=== PATIENT | female | born 1970 | race Caucasian/White ===

== ENCOUNTER → 2018-03-14 | Outpatient (CLI) | payer BC ==
[2018-03-14 12:56] LABS: ANION GAP 6 MEQ/L (8-16); BLOOD UREA NITROGEN 17 MG/DL (7-18); CALCIUM LEVEL 9.3 MG/DL (8.5-10.1); CARBON DIOXIDE LEVEL 32 MEQ/L (21-32); CHLORIDE LEVEL 102 MEQ/L (98-107); CREATININE FOR GFR 1.35 MG/DL (0.55-1.30); GLOMERULAR FILTRATION RATE 44.6 (>58); GLUCOSE, FASTING 85 MG/DL (70-100); SODIUM LEVEL 140 MEQ/L (136-145)
== END ==
LOC: M LAB 11:51
DX: Z01.810 Encounter for preprocedural cardiovascular examination (principal); R94.31 Abnormal electrocardiogram [ECG] [EKG]
CPT/HCPCS: 93005

== ENCOUNTER 2018-08-27 15:08 | Outpatient (RCR) | payer BC ==
[~2018-08-27 15:08] MED LIST: CITA10SO PO; FERR325T3 PO; GABA-843 PO; HYDR12.55 PO; LEVO150T7 PO; LEVOTHYROXINE; NORG1TAB PO; OMEP40CA2 PO; RANI150T PO; RANI1TAB6 PO; ROPI1TAB PO; ZOLP10TA2 PO
== END 2018-09-21 ==
LOC: M PT 15:08
PROVIDERS: ATTEND Orthopaedic Surgery
DX: M17.11 Unilateral primary osteoarthritis, right knee (principal)

== ENCOUNTER 2018-10-08 06:51 | Inpatient (IN) | payer BC ==
--- NOTE | 2018-09-20 16:24 | HPE ---
DATE OF SCHEDULED ADMISSION: 10/08/2018 HISTORY OF PRESENT ILLNESS: This is a pleasant 48-year-old female with continuing symptomatic right knee osteoarthritis. She consented for a right total knee arthroplasty per Dr. Vel Price. States she was medically cleared per Dr. Gloria Dixon. I am still awaiting clearance note. X-rays are consistent with advanced osteoarthritis. ALLERGIES: None known to drugs. CURRENT MEDICATION LIST: Includes; - levothyroxine sodium 150 mcg - ropinirole HCl 2 mg - citalopram hydrobromide 20 mg - hydrochlorothiazide 12.5 mg - omeprazole 40 mg - gabapentin 300 mg - ferrous sulfate 325 (65 ferrous) mg - zolpidem tartrate 10 mg - voltaren 1% - fenofibrate 145 mg - zolpidem tartrate ER 12.5 mg MEDICAL PROBLEM LIST: Symptomatic right knee osteoarthritis. Hypercholesterolemia. Gastroesophageal reflux disease. Restless legs. Kidney stone. Anxiety. Thyroid disease. Depression. SURGICAL HISTORY: Positive for section times two. Tubal ligation. Removal of gallbladder. Appendectomy. Thyroidectomy. George fundoplication. Laparoscopy times two. Knee arthroscopic surgery. FAMILY HISTORY: Positive for diabetes, hypertension, hypercholesteremia, heart disease, arthritis, thyroid disease. Cancer. SOCIAL HISTORY: The patient never smoked. Denies ethanol intake. REVIEW OF SYSTEMS: Denies chest pain, shortness of breath, dyspnea on exertion, fever, chills, malaise, upper respiratory and/or urinary tract symptoms. LABORATORY: Labs were completed through [facility] 08/23/2018. GFR 47.8, otherwise unremarkable. Chest x-ray, [facility], date of exam 08/23/2018: No acute cardiopulmonary process. EKG result: Sinus rhythm, improved nonspecific ST-T ABN as read by Dr. Shepherd via [facility] 09/12/2018. VITAL SIGNS: Height 62.75, weight 206.8, temperature 98.7, blood pressure 135/80, pulse 65 inches, respirations 18. This is a pleasant, well-developed, well-nourished, obese female in no acute distress. Alert and oriented times three. Mood and affect are appropriate. She is ambulating without overt antalgia assistance favoring. Normocephalic. Neck: Supple. Negative jugular venous distention (JVD) or bruits. Chest: Rises symmetrically. Regular rate and rhythm. Lungs: Clear to auscultation. Bowel sounds times four, soft, nontender. Bilateral lower extremity: Skin intact, benign, noninfectious looking. Right knee: Range of motion with crepitance through flexion and extension. Positive medial joint line tenderness. Noted old healed portal scar sites. No evidence of deep vein thrombosis (DVT) or compartment syndrome. IMPRESSION: 1. Right knee symptomatic degenerative joint disease (DJD). 2. Patient consented for a right total knee arthroplasty per Dr. Vel Price. 3. Medical optimization per Dr. Gloria Dixon, per patient, I am still awaiting the clearance note. 4. 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 5. Sequential compression device (SCD) and thromboembolism deterrents (TEDs) in OR.
--- NOTE | 2018-10-04 19:59 | CR ---
DATE OF CONSULTATION: 10/04/2018 CONSULTATION FOR: Dr. Manuel Price for right total knee arthroplasty (TKA) scheduled 10/08/2018 at [facility]. Dear Dr. Price: Thank you for asking me to see Ms. Rut Mancuso in consultation prior to her right TKA. Ms. Mancuso reports that she has been severely limited by pain and disability from progressive pain from her right knee. 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 It is all she can do to work just her job. She goes home exhausted and can hardly recover before her next day of work. The patient has longstanding history of depression, anxiety. She is maintained on citalopram. She reports with her pain and exhaustion, her depression is bad. The patient had been maintained on Ambien ER 12.5. She reports that although it did not work, she was hesitant to let me change it back in August. The high dose she was on is not approved by the Food and Drug Administration for women. She was weaned off this and replaced with trazodone. She reports that she has difficulty falling asleep and getting through the night. She is taking 50 mg of trazodone 1 hour before bedtime. The patient has had an George fundoplication for a hiatal hernia. She is on omeprazole twice a day with good control of dyspepsia. Reports if she misses a pill, she has quite severe dyspepsia. The patient reports that she had had regular menses until last month. Her menses have always been heavy, with heavy flow 4-5 days. The patient reports history of diarrhea tendencies, which resolved when she was placed on iron several years ago. The patient reports recent right breast lump; she has a consultation for a biopsy with Dr. Miller October 31. The patient has a history of migraines. They are well controlled on gabapentin. The patient has a history of edema, uses hydrochlorothiazide for this. She has not used it recently. The patient admits she is quite inactive, but she denies any fevers or chills, chest pain or shortness of breath. The patient reports she has left foot plantar fasciitis. PAST MEDICAL HISTORY: 1. Left carpal tunnel release 03/28/2018, Dr. Lott. 2. Chronic kidney disease. 3. Thyroid cancer 2008. 4. Status post thyroidectomy in 2008. 5. Renal calculi. 6. George fundoplication times two 2011. 7. Cervical cancer in her 20s, status post loop electrosurgical excision procedure (LEEP) procedure, monitored by Dr. Paulino in [place]. 8. Status post appendectomy 1999. 9. Status post cholecystectomy 2000. 10. Status post right TKA 2016. 11. Restless leg syndrome. 12. Migraines. 13. Depression. 14. Insomnia. 15. Left foot plantar fasciitis. 16. Iron deficiency anemia, status post esophagogastroduodenoscopy (EGD) 11/06/2015 and colonoscopy 05/28/2013 without significant pathology. 17. Hypothyroid. MEDICATIONS: - citalopram 20 mg daily - fenofibrate 145 mg daily - ferrous sulfate 325 mg two daily - gabapentin 300 mg three times a day - levothyroxine 150 mcg daily - omeprazole 40 mg two times a day - ropinirole 2 mg at bedtime - trazodone 50 mg nightly DRUG ALLERGIES: None. SOCIAL HISTORY: , two adult children. Works at [employer] in the [employer]. Never smoked. No alcohol. FAMILY HISTORY: Father has coronary artery disease, status post bypass 2013 and history of myocardial infarction times four, history of diabetes. Mother osteoporosis, advanced diabetes, bleeding ulcers. Grandparents cancer in maternal grandfather, throat cancer in a paternal grandmother. Maternal grandmother committed suicide. PHYSICAL EXAMINATION: Obese female, in no acute distress. Her weight is 212 with a body mass index (BMI) of 39, blood pressure 114/74 with a heart rate of 88. Her oxygen saturation (O2) is 97%. Cardiovascular: Soft systolic murmur, does not radiate to the carotids. Abdomen: Obese. Breast Exam: Deferred. HEENT: She wears eyeglasses. IMAGING AND LABORATORY DATA: Chest x-ray, 09/11/2018: No acute disease. EKG, 09/11/2018: Normal sinus rhythm, improved nonspecific ST-T wave changes, rate is 71, normal AL, QRS, QTc interval, normal R-wave progression. No atrial or ventricular hypertrophy. Essentially normal EKG. Laboratory data - 09/11/2018: The patient has a normal CBC, ESR of 16, normal PT/PTT. Med profile significant for a GFR of 48, normal liver panel. IMPRESSION: Ms. Rut Mancuso, a 48-year-old female, cardiovascular risk factors positive for hyperlipidemia, obesity, age, family history, has no signs or symptoms indicative of cardiovascular ischemia and is felt to be at low risk for cardiovascular complications from the proposed surgical intervention, which can be further minimized by the following: PROBLEMS: 1. Hyperlipidemia: Hold fenofibrate morning of surgery. 2. Hiatal hernia, gastroesophageal reflux disease, status post George fundoplication: Take omeprazole with a sip of water morning of surgery. 3. Hypothyroid: Take levothyroxine sip of water morning of surgery. 4. Migraines: She will hold her gabapentin morning of surgery. 5. Restless legs syndrome. She will take ropinirole as usual the evening prior to surgery. 6. Iron deficiency anemia (SUSU): Normal EGD, colonoscopy. Expect related to menorrhagia. Her hemoglobin is normal. She will hold her ferrous sulfate morning of surgery. 7. Insomnia: I have approved her increasing her trazodone from 50 mg to 100 mg as needed. She will start with 75 mg for 2-3 days. 8. Depression: She will take her citalopram as usual the evening prior to surgery. Her PHQ-9 is reviewed and is elevated because of daily fatigue, insomnia and poor eating habits. The patient feels all these symptoms are related to her exhaustion from her pain and difficulties with work. 9. Right breast lump: She will have a consultation with Dr. Miller October 31. 10. Soft systolic murmur: Hold off on further evaluation/treatment. No significant radiation, barely audible. Thank you very much for this consultation. Please call with questions or concerns.
[2018-10-08] VITALS (22 sets, daily range): BP systolic 115–138; BP diastolic 68–89
[~2018-10-08] VITALS: Ht 157.5 cm; Wt 93.9 kg
[~2018-10-08 06:51] MED LIST changes: +LIDOCAINE 1% MDV 20ML VIAL SQ PRN; +LR 1,000 ML IV ONE
[2018-10-08] MEDS ORDERED: TRANEXAMIC ACID 100 MG/ML 10ML VIAL As Ordered ONE (07:11)
[2018-10-08] MEDS ORDERED: ceFAZolin 1GM INJ (J0690 PER 500MG) As Ordered ONE (07:12)
[2018-10-08] MEDS ORDERED: EPINEPHrine INJ 1 MG/ML 1ML AMP As Ordered ONE (07:12)
[2018-10-08] MEDS ORDERED: BUPIVACAINE LIPOSOME/PF 1.3% 20ML VIAL (13.3MG/ML)(EXPAREL)(C9290 PER1MG) As Ordered ONE (07:13)
[2018-10-08] MEDS ORDERED: fentaNYL 100 MCG/2 ML INJECTION (J3010) As Ordered ONE ×2 (08:35→10:05)
[2018-10-08] MEDS ORDERED: MIDAZOLAM INJ 2 MG/2 ML VIAL (J2250) As Ordered ONE ×2 (08:35→10:05)
--- NOTE | 2018-10-08 08:53 | IPN ---
DATE OF SERVICE: 10/08/2018 Patient seen and examined. She wished to go ahead with a right total knee arthroplasty. She understands the nature of this, the risks of bleeding, infection, damage to nerves, vessels, persistent pain, wear, loosening, blood clots, medical problems, , among others. Preop clearance was obtained. She wished to proceed with a right knee arthroplasty.
[2018-10-08] MEDS ORDERED: fentaNYL 100 MCG/2 ML INJECTION (J3010) IV ONE (09:30)
[2018-10-08] MEDS ORDERED: MIDAZOLAM INJ 2 MG/2 ML VIAL (J2250) IV ONE (09:30)
[2018-10-08] MEDS ORDERED: LIDOCAINE 1% MDV 20ML VIAL ONE (09:40)
[2018-10-08] MEDS ORDERED: ROPIvacaine 0.5% 30 ML INJECTION (J2795 PER 1MG) ONE (09:40)
[2018-10-08] MEDS ORDERED: dexameTHASONE 10 MG/1 ML VIAL PRES.FREE (J1100) ONE (09:40)
[2018-10-08] MEDS ORDERED: PROPOFOL 200 MG/20 ML VIAL As Ordered ONE (10:05)
[2018-10-08] MEDS ORDERED: LIDOCAINE 2% INJ 100 MG/5 ML SDV (FOR ANES.) As Ordered ONE (10:05)
[2018-10-08] MEDS ORDERED: ONDANSETRON 4MG/2ML VIAL (J2405) As Ordered ONE (10:05)
[2018-10-08] MEDS ORDERED: ePHEDrine SULFATE 25 MG/5 ML(5MG/ML) SYRINGE As Ordered ONE (10:08)
[2018-10-08] MEDS ORDERED: fentaNYL 100 MCG/2 ML INJECTION (J3010) IV PRN (11:30)
[2018-10-08] MEDS ORDERED: LR 1,000 ML IV SCH (11:30)
[2018-10-08] MEDS ORDERED: ONDANSETRON 4MG/2ML VIAL (J2405) IV PRN ×2 (11:30→11:45)
[2018-10-08] MEDS ORDERED: ACETAMINOPHEN TAB 650MG DOSE (2X325MG) PO PRN (11:45)
[2018-10-08] MEDS ORDERED: PERCOCET 5MG/325MG TAB PO PRN (11:45)
[2018-10-08] MEDS ORDERED: MORPHINE 4 MG/ML 1ML VIAL/SYRINGE (J2270) IV PRN (11:45)
[2018-10-08] MEDS ORDERED: FLEET ENEMA PR PRN (11:45)
[2018-10-08] MEDS: LR 1,000 ML IV SCH (11:45)
--- NOTE | 2018-10-08 11:46 | REP ---
RIGHT KNEE, TWO VIEWS: Two views of the right knee are performed following placement of a total knee arthroplasty. Prosthetic components are in good position. The structures are well aligned. Metallic skin veronique are seen anteriorly. Electronically Signed by Avery Aguayo MD 10/08/2018 04:20 P
[2018-10-08] MEDS: PERCOCET 5MG/325MG TAB PO PRN ×3 (12:20→19:48)
--- NOTE | 2018-10-08 13:46 | CR.PDOC ---
General Date of Consultation: Oct 08, 2018 Consultation DATE OF CONSULT: 10/08/2018 CONSULT FOR: Orthopedic surgery REASON FOR CONSULT: Medical management HISTORY OF PRESENT ILLNESS: Patient is a 48-year-old female with known right knee significant osteoarthritis was failed supportive measures in the outpatient setting. At this time she is postop day 0 status post elective right total knee arthroplasty. I have been told that she tolerated her procedure quite well she did have significant pain prior to the procedure at this time her pain is controlled. We'll pick surgery as consult medicine order to assist with medical management while hospitalized and her chronic medical problems. Otherwise patient denies weight loss, hair loss, headache, visual changes, chest pain, shortness of breath, cough, nausea, vomiting, diarrhea, abdominal pain, muscle aches, worsening arthritis, change in mood. Preop risk stratification completed by Dr. Hernandez the patient's primary care provider PAST MEDICAL HISTORY: 1. Depression and anxiety. 2. Insomnia. 3. Chronic kidney disease 4. Thyroid cancer status post thyroidectomy 5. Cervical cancer status post LEEP 6. Restless leg syndrome 7. Iron deficiency anemia 8. Hypothyroidism 9. Dyslipidemia. HOME MEDICATIONS: Please see below. ALLERGIES: Please see below PAST SURGICAL HISTORY: 1. Appendectomy. 2. Cholecystectomy. 3. And George fundoplication 4. Breast biopsy 5. Left carpal tunnel release 6. Thyroidectomy 7. LEEP. SOCIAL HISTORY: Lives with: With her , Employment: [employer], Tobacco use: Denies. ETOH: Denies, Illicit drug use: Denies, Tattoos done unprofessionally: Denies. CODE STATUS: Full code FAMILY HISTORY:Reviewed and noncontributory REVIEW OF SYSTEMS: 10 systems reviewed and negative other than HPI PHYSICAL EXAMINATION: VITAL SIGNS: Temperature 97.3, pulse 66, respiratory rate 14, blood pressure 126/81, pulse oximetry 92 % on 2 L GENERAL: Pleasant female sitting up in bed awake alert oriented speaking in complete sentences no acute distress HEENT: Moist mucous membranes no elevation and CVP CARDIOVASCULAR: S1 S2 regular no additional heart sounds appreciated. RESPIRATORY: Clear to auscultation bilaterally. ABDOMINAL: Bowel sounds present abdomen soft and nontender, obese EXTREMITIES: No clubbing cyanosis or edema, her right lower extremity is Danilo wrapped the dressing is clean dry and intact NEUROLOGICAL: Spontaneously moves all 4 extremities cranial 2 through 12 grossly intact no gross focal deficits appreciated decreased range of motion on the right lower exam is secondary to pain PSYCHOLOGICAL: Appropriate LABORATORY DATA: See below. MICROBIOLOGY: Please see below. IMAGING: Knee x-ray 10/08/2018Two views of the right knee are performed following placement of a total knee arthroplasty. Prosthetic components are in good position. The structures are well aligned. Metallic skin veronique are seen anteriorly. ASSESSMENT & PLAN: This is a 48-year-old female postop day 0 for right total knee arthroplasty PROBLEMS: 1. Right total knee arthroplasty point. Day 0: Management as per orthopedic surgery, pain control DVT prophylaxis physical therapy occupational therapy disposition.. 2.Iron deficiency anemia: Continue with ferrous sulfate, she'll likely have a very mild drop in hemoglobin secondary to surgery, 3.Dyspepsia: Continue with omeprazole 40 twice a day 4. Hypothyroidism: Continue levothyroxine 5. Neuropathy: Continue with gabapentin 6. Restless leg syndrome: Continue with ropinirole 7. Insomnia: Continue with trazodone 8. Anxiety depression: Continue with citalopram 20 mg DVT PROPHYLAXIS:As per orthopedic surgery Thank you for this interesting consult, we will continue to follow along with you. Please Vocera secure text or call with any specific questions. Vital Signs/I&O Vital Signs Date Time Temp Pulse Resp B/P (MAP) Pulse Ox O2 Delivery O2 Flow Rate FiO2 10/08/18 13:05 74 14 135/85 (102) 97 2 10/08/18 12:06 97.3 Allergies Coded Allergies: No Known Allergies (Unverified , 10/08/18) Home Medications Scheduled Citalopram Hydrobromide (Citalopram HBr) 10 Mg/5 Ml Karla, 10 MG PO DAILY, (Reported) Ferrous Sulfate (Ferrous Sulfate) 325 Mg Tab, 150 MG PO DAILY, (Reported) Gabapentin (Gabapentin) 300 Mg Cap, 300 MG PO BID, (Reported) Levothyroxine Sodium (Levothyroxine Sodium) 150 Mcg Tab, 150 MCG PO DAILY, (Reported) Omeprazole (Omeprazole) 40 Mg Cap, 40 MG PO BID, (Reported) Ropinirole HCl (Ropinirole HCl) 1 Mg Tab, 1 MG PO DAILY, (Reported) Zolpidem Tartrate (Zolpidem Tartrate) 10 Mg Tab, 10 MG PO PRN, (Reported) QAMAR CONWAY MD Oct 08, 2018 13:46
--- NOTE | 2018-10-08 15:17 | RO ---
DATE OF PROCEDURE: 10/08/2018 PREPROCEDURE DIAGNOSIS: Right knee osteoarthritis. POSTPROCEDURE DIAGNOSIS: Right knee osteoarthritis. PROCEDURE: Right total knee arthroplasty using a Attune rotating platform posterior stabilized size 3 femur, size 3 tibia, and a 12 polyethylene 35 patella. SURGEON: Dr. Vel Price. CRAYON PAINTER: Lucas Severino PA-C ANESTHESIA: Spinal. ESTIMATED BLOOD LOSS: Less than 50 mL. COMPLICATIONS: None. INDICATION: This is a 48-year-old woman who has had advanced arthritis and diffuse knee pain. She wished to go ahead with knee replacement understanding that she was very young for this and would likely wear it out. She had been refractory to conservative management and her knee pain was diffuse. She understood the nature and risks associated with this. Preoperative clearance was obtained. DESCRIPTION OF PROCEDURE: The patient was taken to the operating room and placed in the supine position after spinal anesthesia was induced. The right lower extremity was prepped and draped in the sterile fashion. A time out was performed. A tourniquet was inflated. I created a longitudinal incision over the anterior aspect of the knee. Sharp dissection was carried down to the subcutaneous tissue. I performed a medial parapatellar arthrotomy per routine, everted the patella, used the canal initiating reamer on the femoral side followed by the intramedullary guide set at 9 mm cut and 5 degrees of valgus. This was pinned in place and the distal femoral cut was made. I protected soft tissues. The remaining cuts were made after I sized the femur to be a 3 and placed the drill holes in the end of the femur with external rotation dialed in. Once the cutting block was secured, the remaining four cuts were made. We then directed our attention to the tibia. The tibial alignment guide was secured in the appropriate amount of valgus and posterior slope and the proximal tibial cut was made by removing 4 mm from the low side to protect the posterior cruciate ligament (PCL). Then used the rn manager to remove soft tissue and there were no real significant osteophytes posteriorly. However, there is evidence that the PCL was deficient at this point so I elected to go with the posterior stabilized knee. Box cutting guide was then placed on the femoral side. The remaining three cuts were removed. The excess bone was removed and then we prepared the tibia, which was sized to be a 3. This was pinned in place and drilled and broached. I had to use spacer blocks of a 10 and a 12 and it felt like the 12 was the most appropriate. The actual trial components were then inserted. They all fit very nicely. I was very pleased with the 12 polyethylene and the size of the components. I then [id number] the patella removing about 7 mm of bone and sized it to be a 35. The drill holes were placed in the end of the femur and the patella and the trial components were placed. The patella tracked very nicely. I did have to do a very slight lateral release but was very pleased with the tracking. The trial components were removed. I irrigated copiously, place the Exparel in the deep tissues. Dried the bony surfaces, cement on the tibial tray and the femoral component, removed excess bone cement, placed the polyethylene, brought the knee out in extension. Cemented on the patella, removed excess bone cement, irrigated and placed the TXA in the deep tissues and then closed the deep layer with #1-0 Vicryl suture and running Stratafix suture for water-tight closure. Irrigated and closed the subcu with #2-0 Vicryl and the skin with veronique. A sterile dressing was applied, tourniquet was deflated. She was taken to the recovery room in stable condition. There were no known complications. The plan will be routine postop. The visitor use assistant was instrumental in holding retractors and assisting in positioning the knee. Assisting in mixing the bone cement and would closure.
[2018-10-08] MEDS ORDERED: HYDROMORPHONE HCL 0.5 MG/ 0.5 ML SYRINGE (J1170 PER 1) As Ordered ONE (15:31)
[2018-10-08] MEDS: HYDROMORPHONE HCL 0.5 MG/ 0.5 ML SYRINGE (J1170 PER 1) IV PRN ×2 (15:37→15:58)
--- NOTE | 2018-10-08 17:59 | REP ---
CT ABDOMEN AND PELVIS WITHOUT CONTRAST: CT abdomen and pelvis without contrast was performed without oral of IV contrast. Sagittal and coronal reconstruction images are performed. There are minor fibro atelectatic changes in the visualized lung bases. The liver is grossly unremarkable. The patient has had a prior cholecystectomy. There is no biliary dilatation. The spleen adrenals and pancreas are unremarkable. No renal, ureteral or bladder calculus is seen. There is no hydroureteronephrosis. There is no abdominal aortic aneurysm. There is no adenopathy. There is no free air or free fluid. No bowel wall thickening is seen. Urinary bladder is very mildly distended and not well evaluated. There are degenerative changes of the spine. IMPRESSION: No renal, ureteral or bladder calculus and no hydroureteronephrosis. Small hiatal hernia. The patient is status-post cholecystectomy. Electronically Signed by Avery Aguayo MD 10/09/2018 04:24 P
[2018-10-08] MEDS ORDERED: CITA20TA6 PO (18:31)
[2018-10-08] MEDS ORDERED: HYDR12.55 PO (18:31)
[2018-10-08] MEDS ORDERED: ROPI2TAB PO (18:31)
[2018-10-08] MEDS ORDERED: FENO145T13 PO (18:31)
[2018-10-08] MEDS ORDERED: TRAZ-252 PO (18:31)
[2018-10-08] MEDS ORDERED: GNP45TAB2 PO (18:32)
[2018-10-08] MEDS: FERROUS SULFATE 325MG TAB PO SCH (19:49)
[2018-10-08] MEDS: rOPINIRole 1MG TAB PO SCH (19:49)
[2018-10-08] MEDS: CitaloPRAM (CeleXA) 20 MG TAB PO SCH (19:49)
[2018-10-08] MEDS: OMEPRAZOLE 20 MG CAP PO SCH (19:49)
[2018-10-08] MEDS: GABAPENTIN 300 MG CAP PO SCH (19:49)
--- NOTE | 2018-10-08 21:23 | ECGEPIP ---
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
[2018-10-08] MEDS: traZODone 50 MG TAB PO PRN (22:22)
[2018-10-09] VITALS (7 sets, daily range): BP systolic 116–130; BP diastolic 60–81
[2018-10-09] MEDS: LR 1,000 ML IV SCH (01:05)
[2018-10-09] MEDS: PERCOCET 5MG/325MG TAB PO PRN ×5 (02:07→21:03)
[2018-10-09] MEDS: MORPHINE 4 MG/ML 1ML VIAL/SYRINGE (J2270) IV PRN ×2 (03:39→06:13)
[2018-10-09 05:56] LABS: HEMATOCRIT 35.6 % (36.0-47.0); HEMOGLOBIN 11.6 g/dl (12.0-15.5); MEAN CORPUSCULAR HEMOGLOBIN 29.6 pg (27.0-33.0); MEAN CORPUSCULAR HGB CONC 32.6 g/dl (32.0-36.5); MEAN CORPUSCULAR VOLUME 90.8 fl (80.0-96.0); PLATELET COUNT, AUTOMATED 358 10^3/uL (150-450); RED BLOOD COUNT 3.92 10^6/uL (4.00-5.40); WHITE BLOOD COUNT 11.9 10^3/uL (4.0-10.0)
[2018-10-09] MEDS: LEVOTHYROXINE 150MCG TABLET (0.15MG) PO SCH (06:24)
[2018-10-09] MEDS ORDERED: PERC5TAB12 PO (07:19)
[2018-10-09] MEDS ORDERED: XARE10TA PO (07:19)
[2018-10-09] MEDS: rOPINIRole 1MG TAB PO SCH (08:30)
[2018-10-09] MEDS: GABAPENTIN 300 MG CAP PO SCH ×2 (08:30→21:02)
[2018-10-09] MEDS: MOM 30ML SUSPENSION UDC PO SCH (08:30)
[2018-10-09] MEDS: FERROUS SULFATE 325MG TAB PO SCH (08:30)
[2018-10-09] MEDS: MIRALAX *UNIT DOSE* 17GM PACKET PO SCH (08:30)
[2018-10-09] MEDS: OMEPRAZOLE 20 MG CAP PO SCH ×2 (08:30→21:02)
[2018-10-09] MEDS ORDERED: RIVAROXABAN 10 MG TAB (XARELTO) PO SCH (18:00)
[2018-10-09] MEDS: CitaloPRAM (CeleXA) 20 MG TAB PO SCH (21:02)
[2018-10-09] MEDS: traZODone 50 MG TAB PO PRN (21:02)
[2018-10-10 02:00] VITALS: BP 136/79
[2018-10-10] MEDS: PERCOCET 5MG/325MG TAB PO PRN ×2 (02:33→06:39)
[2018-10-10 06:00] VITALS: BP 134/69
[2018-10-10] MEDS: LEVOTHYROXINE 150MCG TABLET (0.15MG) PO SCH (06:39)
[2018-10-10 07:28] LABS: HEMATOCRIT 34.7 % (36.0-47.0); HEMOGLOBIN 11.5 g/dl (12.0-15.5); MEAN CORPUSCULAR HEMOGLOBIN 30.3 pg (27.0-33.0); MEAN CORPUSCULAR HGB CONC 33.1 g/dl (32.0-36.5); MEAN CORPUSCULAR VOLUME 91.3 fl (80.0-96.0); PLATELET COUNT, AUTOMATED 338 10^3/uL (150-450)
[2018-10-10] MEDS: GABAPENTIN 300 MG CAP PO SCH (09:46)
[2018-10-10] MEDS: rOPINIRole 1MG TAB PO SCH (09:46)
[2018-10-10] MEDS: MOM 30ML SUSPENSION UDC PO SCH (09:47)
[2018-10-10] MEDS: FERROUS SULFATE 325MG TAB PO SCH (09:47)
[2018-10-10] MEDS: OMEPRAZOLE 20 MG CAP PO SCH (09:47)
[2018-10-10] MEDS: MIRALAX *UNIT DOSE* 17GM PACKET PO SCH (09:47)
== END 2018-10-10 11:25 | disposition home or self-care (01) | DRG 302 ==
LOC: M OR 06:51 → M MS5PR 17:45
PROVIDERS: ADMIT Orthopaedic Surgery; ATTEND Orthopaedic Surgery
PROC: 0SRC0J9 Replacement of Right Knee Joint with Synthetic Substitute, Cemented, Open Approach (ICD-10-PCS; principal; 2018-10-08 09:30)
DX: M17.11 Unilateral primary osteoarthritis, right knee (principal); F32.9 Major depressive disorder, single episode, unspecified; E78.00 Pure hypercholesterolemia, unspecified; K21.9 Gastro-esophageal reflux disease without esophagitis; G25.81 Restless legs syndrome; F41.9 Anxiety disorder, unspecified; D50.9 Iron deficiency anemia, unspecified; E89.0 Postprocedural hypothyroidism; N63.10 Unspecified lump in the right breast, unspecified quadrant; G47.00 Insomnia, unspecified; K44.9 Diaphragmatic hernia without obstruction or gangrene; Z87.442 Personal history of urinary calculi; Z90.49 Acquired absence of other specified parts of digestive tract; Z85.850 Personal history of malignant neoplasm of thyroid; Z85.41 Personal history of malignant neoplasm of cervix uteri

== ENCOUNTER → 2019-04-15 | Outpatient (CLI) | payer BC ==
[~2019-04-15] MED LIST changes: +CITA20TA6 PO; +FENO145T13 PO; +GNP45TAB2 PO; -LIDOCAINE 1% MDV 20ML VIAL SQ PRN; -LR 1,000 ML IV ONE; -NORG1TAB PO; +NORG1TAB4 PO; -OMEP40CA2 PO; +OMEP40CA97 PO; +PERC5TAB12 PO; +RANI-397 PO; -RANI1TAB6 PO; +ROPI2TAB PO; +TRAZ-252 PO; +XARE10TA PO
[2019-04-15 18:11] LABS: BASO # 0.1 10^3/uL (0.0-0.2); BASO % 0.6 % (0.0-1.0); EOS # 0.1 10^3/uL (0.0-0.5); EOS % 0.7 % (0.0-3.0); HEMATOCRIT 42.6 % (36.0-47.0); HEMOGLOBIN 13.8 g/dl (12.0-15.5); LYMPH # 2.7 10^3/uL (1.5-5.0); LYMPH % 22.6 % (24.0-44.0); MEAN CORPUSCULAR HEMOGLOBIN 28.8 pg (27.0-33.0); MEAN CORPUSCULAR HGB CONC 32.4 g/dl (32.0-36.5); MEAN CORPUSCULAR VOLUME 88.8 fl (80.0-96.0); MONO # 0.7 10^3/uL (0.0-0.8); MONO % 5.5 % (0.0-5.0); NEUTROPHILS # 8.5 10^3/uL (1.5-8.5); NEUTROPHILS % 70.2 % (36.0-66.0); PLATELET COUNT, AUTOMATED 414 10^3/uL (150-450); WHITE BLOOD COUNT 12.1 10^3/uL (4.0-10.0)
[2019-04-15 19:02] LABS: ERYTHROCYTE SEDIMENTATION RATE 29 mm/hr (0-20)
== END ==
LOC: M LAB 15:05
PROVIDERS: ATTEND Physician Assistant
DX: Z96.651 Presence of right artificial knee joint (principal)

== ENCOUNTER → 2019-05-08 | Outpatient (CLI) | payer BC ==
[~2019-05-08] MED LIST changes: -FENO145T13 PO; +FENO145T7 PO
--- NOTE | 2019-05-08 17:51 | REP ---
Three-phase bone scan of the knees: History: Right knee replacement. Right knee pain comparison CT study April 04, 2019. Comparison radiographs October 08, 2018. Rule out loosening. Technique: 22.0 mCi technetium 99m MDP is injected and standard three-phase imaging centered at the knees is acquired. Scintigraphic findings: There is minimal hyperemia anteriorly on the right on the flow study. Blood pool image shows mildly increased uptake as well about the bone prosthesis interface of the right knee arthroplasty as expected status post arthroplasty less than 1-year-old. Delayed scan images demonstrate normal uptake at the left. There is increased uptake diffusely across the bone prosthesis interface surfaces of the distal femur and proximal tibia and patella. No focal area of increased uptake is seen to suggest loosening. Impression: Expected bone prosthesis interface uptake. No scintigraphic evidence to suggest loosening or infection. Electronically Signed by Philipp Schwartz MD 05/08/2019 06:19 P
== END ==
LOC: M RAD 10:30
PROVIDERS: ATTEND Physician Assistant
DX: Z96.651 Presence of right artificial knee joint (principal)
CPT/HCPCS: 78315; A9503

== ENCOUNTER → 2019-07-08 | Outpatient (CLI) | payer BC ==
[~2019-07-08] MED LIST changes: -ROPI1TAB PO; +ROPI1TAB3 PO; -ROPI2TAB PO; +ROPI2TAB3 PO
[2019-07-08 14:57] LABS: BASO % 0.4 % (0.0-1.0); EOS # 0.2 10^3/uL (0.0-0.5); EOS % 1.9 % (0.0-3.0); HEMATOCRIT 40.1 % (36.0-47.0); HEMOGLOBIN 13.4 g/dl (12.0-15.5); LYMPH # 3.1 10^3/uL (1.5-5.0); LYMPH % 28.8 % (24.0-44.0); MEAN CORPUSCULAR HGB CONC 33.4 g/dl (32.0-36.5); MEAN CORPUSCULAR VOLUME 86.8 fl (80.0-96.0); MONO # 0.9 10^3/uL (0.0-0.8); MONO % 7.8 % (0.0-5.0); NEUTROPHILS # 6.6 10^3/uL (1.5-8.5); NEUTROPHILS % 60.4 % (36.0-66.0); PLATELET COUNT, AUTOMATED 355 10^3/uL (150-450); RED BLOOD COUNT 4.62 10^6/uL (4.00-5.40); WHITE BLOOD COUNT 10.9 10^3/uL (4.0-10.0)
[2019-07-08 15:30] LABS: ERYTHROCYTE SEDIMENTATION RATE 35 mm/hr (0-20)
== END ==
LOC: M LAB 14:05
PROVIDERS: ATTEND Physician Assistant
DX: M25.561 Pain in right knee (principal)

== ENCOUNTER → 2019-07-08 | Outpatient (CLI) | payer BC ==
[2019-07-08 15:23] LABS: BLOOD UREA NITROGEN 11 MG/DL (7-18); C REACTIVE PROTEIN QUANTITATIV 1.26 MG/DL (0.00-0.30); CALCIUM LEVEL 9.7 MG/DL (8.5-10.1); CARBON DIOXIDE LEVEL 30 MEQ/L (21-32); CHLORIDE LEVEL 102 MEQ/L (98-107); CREATININE FOR GFR 1.03 MG/DL (0.55-1.30); GLOMERULAR FILTRATION RATE > 60.0 (>58); GLUCOSE, FASTING 94 MG/DL (70-100); SODIUM LEVEL 139 MEQ/L (136-145)
== END ==
LOC: M LAB 14:07
PROVIDERS: ATTEND Internal Medicine
DX: E78.00 Pure hypercholesterolemia, unspecified (principal); R79.82 Elevated C-reactive protein (CRP)

== ENCOUNTER → 2019-08-12 | Outpatient (CLI) | payer BC ==
[2019-08-12 16:02] LABS: BASO # 0.1 10^3/uL (0.0-0.2); BASO % 0.5 % (0.0-1.0); EOS # 0.1 10^3/uL (0.0-0.5); EOS % 1.1 % (0.0-3.0); HEMATOCRIT 39.7 % (36.0-47.0); HEMOGLOBIN 13.6 g/dl (12.0-15.5); LYMPH # 3.4 10^3/uL (1.5-5.0); LYMPH % 27.1 % (24.0-44.0); MEAN CORPUSCULAR HEMOGLOBIN 29.8 pg (27.0-33.0); MEAN CORPUSCULAR HGB CONC 34.3 g/dl (32.0-36.5); MEAN CORPUSCULAR VOLUME 87.1 fl (80.0-96.0); MONO % 8.3 % (0.0-5.0); NEUTROPHILS # 7.9 10^3/uL (1.5-8.5); NEUTROPHILS % 62.8 % (36.0-66.0); PLATELET COUNT, AUTOMATED 397 10^3/uL (150-450); RED BLOOD COUNT 4.56 10^6/uL (4.00-5.40); WHITE BLOOD COUNT 12.6 10^3/uL (4.0-10.0)
== END ==
LOC: M LAB 15:20
PROVIDERS: ATTEND Physician Assistant
DX: M25.561 Pain in right knee (principal)

== ENCOUNTER → 2019-11-29 | Outpatient (CLI) | payer BC ==
[~2019-11-29] MED LIST changes: +AMIT50TA PO; +HYDR12CA PO; +NORC1TAB7 PO; +OMEP-218 PO; +SYNT100T PO
== END ==
LOC: M LABSMTC 10:30
PROVIDERS: ATTEND Orthopaedic Surgery
DX: Z11.59 Encounter for screening for other viral diseases (principal)

== ENCOUNTER → 2019-12-17 | Outpatient (REF) | payer BC | LOC: M LAB REF 17:46 | PROVIDERS: ATTEND Internal Medicine | DX: R79.82 Elevated C-reactive protein (CRP) (principal) ==

== ENCOUNTER → 2020-01-09 | Outpatient (CLI) | payer BC ==
[2020-01-09 13:14] LABS: BASO % 0.5 % (0.0-1.0); EOS # 0.1 10^3/uL (0.0-0.5); EOS % 1.6 % (0.0-3.0); HEMATOCRIT 40.5 % (36.0-47.0); HEMOGLOBIN 13.5 g/dl (12.0-15.5); LYMPH # 2.7 10^3/uL (1.5-5.0); LYMPH % 32.6 % (24.0-44.0); MEAN CORPUSCULAR HEMOGLOBIN 29.7 pg (27.0-33.0); MEAN CORPUSCULAR HGB CONC 33.3 g/dl (32.0-36.5); MEAN CORPUSCULAR VOLUME 89.2 fl (80.0-96.0); MONO # 0.8 10^3/uL (0.0-0.8); MONO % 9.8 % (0.0-5.0); NEUTROPHILS # 4.5 10^3/uL (1.5-8.5); NEUTROPHILS % 55.3 % (36.0-66.0); PLATELET COUNT, AUTOMATED 383 10^3/uL (150-450); RED BLOOD COUNT 4.54 10^6/uL (4.00-5.40); WHITE BLOOD COUNT 8.2 10^3/uL (4.0-10.0)
[2020-01-09 13:51] LABS: ERYTHROCYTE SEDIMENTATION RATE 19 mm/hr (0-20)
[2020-01-09 18:43] LABS: SOURCE, BODY FLUID RT KNEE; SYNOVIAL FLUID COLOR YELLOW (YELLOW)
[2020-01-09 18:47] LABS: CRYSTALS, BODY FLUID NONE SEEN (NONE SEEN); SOURCE, BODY FLUID CRYSTALS RT KNEE
[2020-01-09 19:03] LABS: SOURCE, BODY FLUID GLUCOSE RT KNEE
[2020-01-10 12:47] LABS: BODY FLUID RHEUMATOID SCREEN NEGATIVE (NEGATIVE); MUCIN CLOT TEST 3+ (4+)
== END ==
LOC: M LAB 12:10
PROVIDERS: ATTEND Orthopaedic Surgery
DX: Z01.812 Encounter for preprocedural laboratory examination (principal); M25.561 Pain in right knee

== ENCOUNTER → 2020-02-25 | Outpatient (CLI) | payer BC ==
[2020-02-25 15:11] LABS: HEMATOCRIT 42.8 % (36.0-47.0)
[2020-02-25 15:15] LABS: BLOOD UREA NITROGEN 13 MG/DL (7-18); CALCIUM LEVEL 10.1 MG/DL (8.5-10.1); CARBON DIOXIDE LEVEL 34 MEQ/L (21-32); CHLORIDE LEVEL 100 MEQ/L (98-107); GLOMERULAR FILTRATION RATE > 60.0 (>51); GLUCOSE, FASTING 87 MG/DL (70-100); POTASSIUM SERUM 4.2 MEQ/L (3.5-5.1); SODIUM LEVEL 139 MEQ/L (136-145)
[2020-02-25 21:29] LABS: C REACTIVE PROTEIN QUANTITATIV 0.96 MG/DL (0.00-0.30); RHEUMATOID FACTOR QUANT < 10.0 IU/ML (<15.0)
[2020-02-27 16:08] LABS: ANTINUCLEAR ANTIBODIES DIRECT Negative (Negative); Lyme Disease IgG/IgM Antibodie <0.91 ISR (0.00-0.90); Lyme Disease IgM Ab Quantitati <0.80 index (0.00-0.79)
== END ==
LOC: M LAB 14:04
PROVIDERS: ATTEND Orthopaedic Surgery
DX: Z01.812 Encounter for preprocedural laboratory examination (principal); Z96.651 Presence of right artificial knee joint; Z79.899 Other long term (current) drug therapy

== ENCOUNTER 2020-02-28 10:23 | Emergency (ER) | payer BC ==
[~2020-02-28] VITALS: Ht 162.6 cm; Wt 94.5 kg
[~2020-02-28 10:23] MED LIST changes: -AMIT50TA PO; -HYDR12CA PO; -NORC1TAB7 PO; -OMEP-218 PO; -SYNT100T PO
[2020-02-28] MEDS ORDERED: NORCO, ANEXSIA 5/325MG TABLET (HYDROcodone/ACETAMINOPHEN) PO ONE (11:30)
--- NOTE | 2020-02-28 12:16 | REP ---
INDICATION: pain behind knee/swelling knee and leg. COMPARISON: None. TECHNIQUE: Left lower extremity duplex venous ultrasound. FINDINGS: The deep veins are anechoic and fully compressible from the groin to the popliteal fossa in the left lower extremity. Color flow imaging is homogeneous. Spectral Doppler interrogation demonstrates intact respiratory variation in flow and normal manual augmentation of flow. There is no evidence of deep vein thrombosis. IMPRESSION: Negative left lower extremity duplex venous ultrasound. No evidence of deep vein thrombosis. <Electronically signed by Dre Schwartz > 02/28/20 [id number]
--- NOTE | 2020-02-28 13:03 | REP ---
INDICATION: left knee pain COMPARISON: None. TECHNIQUE: Four views obtained. FINDINGS: Four views of the left knee demonstrate no evidence of acute fracture, dislocation, or intrinsic bone disease. There is mild medial joint space narrowing. I do not see a significant joint effusion. IMPRESSION: No fracture or dislocation. Mild degenerative changes. <Electronically signed by Avery Aguayo > 02/28/20 [id number]
[2020-02-28] MEDS ORDERED: OMEP-218 PO (13:30)
[2020-02-28] MEDS ORDERED: HYDR12CA PO (13:30)
[2020-02-28] MEDS ORDERED: AMIT50TA PO (13:30)
[2020-02-28] MEDS ORDERED: SYNT100T PO (13:30)
[2020-02-28 14:04] LABS: BASO # 0.1 10^3/uL (0.0-0.2); BASO % 0.4 % (0.0-1.0); EOS # 0.1 10^3/uL (0.0-0.5); EOS % 0.6 % (0.0-3.0); HEMATOCRIT 42.9 % (36.0-47.0); HEMOGLOBIN 14.4 g/dl (12.0-15.5); LYMPH # 3.4 10^3/uL (1.5-5.0); LYMPH % 24.1 % (24.0-44.0); MEAN CORPUSCULAR HEMOGLOBIN 30.1 pg (27.0-33.0); MEAN CORPUSCULAR HGB CONC 33.6 g/dl (32.0-36.5); MEAN CORPUSCULAR VOLUME 89.6 fl (80.0-96.0); MONO # 1.2 10^3/uL (0.0-0.8); MONO % 8.4 % (0.0-5.0); NEUTROPHILS # 9.4 10^3/uL (1.5-8.5); NEUTROPHILS % 66.1 % (36.0-66.0); PLATELET COUNT, AUTOMATED 412 10^3/uL (150-450); RED BLOOD COUNT 4.79 10^6/uL (4.00-5.40); WHITE BLOOD COUNT 14.3 10^3/uL (4.0-10.0)
[2020-02-28 14:16] VITALS: BP 143/98
--- NOTE | 2020-02-28 14:17 | REP ---
INDICATION: pain/giving out. COMPARISON: X-ray 02/28/2020 TECHNIQUE: Noncontrast images through the knee with coronal and sagittal reconstructions. FINDINGS: Distal femur shows no fracture or focal lesion. There is slight narrowing of the medial compared to the lateral joint compartment. No definite fracture the femoral condyles or distal femoral shaft/metaphysis. Sagittal images and axial projections suggest small joint effusion. Narrowing of the patellofemoral joint without patellar subluxation or dislocation quadriceps and patellar tendons are intact PCL is seen with fat surrounding it. I cannot discern the ACL from the soft tissue density in the intercondylar notch but that does not imply pathology there is a soft tissue calcification posteriorly near the posterior margin of the medial tibial spine. This could be a small avulsion of uncertain age. Tibial plateau without any depression or fracture. The remainder of the proximal tibia and fibula were unremarkable. There is no patellar fracture or focal lesion. There are no abnormal soft tissue masses in the subcutaneous fat or in the popliteal fossa. IMPRESSION: 1. 1. Mild narrowing of the medial joint compartment and more in the patellofemoral compartment representing degenerative change. 2. Small joint effusion. There is a tiny calcific density adjacent to the posterior aspect of the medial tibial spine of uncertain age, it may be a small avulsion, old or new. 3. There is no visible acute fracture line for the tibia, fibula, femur or patella on this study. <Electronically signed by Vivek Carlson > 02/28/20 [id number]
[2020-02-28 14:39] LABS: ERYTHROCYTE SEDIMENTATION RATE 35 mm/hr (0-30)
[2020-02-28] MEDS ORDERED: NORC1TAB7 PO (15:06)
--- NOTE | 2020-03-02 07:24 | CR ---
DATE OF CONSULTATION: 02/28/2020 INDICATION: Left knee pain. HISTORY OF PRESENT ILLNESS: Rut is a 50 -year-old female who follows at [facility] and she was walking earlier this morning and felt a pop in the back of her knee for no apparent reason and since then has had severe pain and inability to bear weight. She has a history of a right total knee replacement by Dr. Price that is doing well. I believe she follows with our PAs in the office. She had a left knee cortisone shot as recently as earlier this week and it worked well for a few days, but has now worn off. I am unsure if the patient has ever had viscosupplementation. Most of the pain is in the posterior aspect of the knee and lateral. X-rays are fairly unremarkable. For the patient's full Past Medical History, Past Surgical History, Medications, Allergies, Social History and Review of Systems please see the ER Intake Form. PHYSICAL EXAMINATION: Physical exam reveals a middle-age female in no distress. Alert and oriented times 3. Neurological: Appropriate mood and affect. Cardiovascular: 2+ dorsalis pedis pulse. Pulmonary: Non-labored breathing. Abdomen: Nondistended. Skin: Skin on the left knee is intact without open lesions and no redness. Musculoskeletal: Patient has no obvious effusion. Her calf does not look swollen. Her anterior, lateral and posterior compartments are entirely soft and compressible. Patient does have some calf pain with passive stretch of the toes, but again the patient is completely soft and there is no clinical picture for compartment syndrome. Sensation to light touch in her foot is intact. She can fire EHL, FHL, TA and GS. Patient has significant tenderness diffusely which makes evaluating her knee challenging. Maximal areas of tenderness over the lateral collateral ligament and the popliteal fossa. The patella is essentially nontender. The patellar tendon and quad tendons appear intact on palpation. She can do a straight leg raise with pain. IMAGING: X-rays of the left knee from the ER today show mild arthritis, no obvious fractures, no effusion. ASSESSMENT AND PLAN: Rut has left knee pain after feeling a pop this morning. Exact etiology is unclear, but differential diagnoses would include a ruptured Bakers cyst or an occult fracture of the posterior tibial plateau such as a PCL avulsion fracture. So although the clinical picture for infection is extremely low I am recommending a blood work-up to rule out an infectious etiology to include a CBC, ESR and CRP. I am recommending a CT scan of the left knee to rule out an occult fracture of the tibial plateau. Patient does not have any criteria at this point to justify an emergent MRI, but that ultimately is going to be what is required and we can get that on an outpatient basis unless her clinical picture changes. The Emergency Room PA was instructed to obtain a CT scan of the left knee, obtain the blood work, provide the patient with a prescription for some hydrocodone to get through the weekend. I would like her to receive a dose of Toradol and she can protect weightbear with a walker and a knee immobilizer. The ER will contact me if there is any elevation of inflammatory markers or anything concerning on the CT scan. Patient will need to see a PA next Monday or Monday. TRENT
== END 2020-02-28 15:50 | disposition home or self-care (01) ==
LOC: M ED 10:23
DX: M25.562 Pain in left knee (principal); F33.9 Major depressive disorder, recurrent, unspecified; F41.9 Anxiety disorder, unspecified; K21.9 Gastro-esophageal reflux disease without esophagitis; Z79.899 Other long term (current) drug therapy; Z79.890 Hormone replacement therapy

== ENCOUNTER → 2020-02-28 | Outpatient (CLI) | payer BC | LOC: M LABSMTC 10:05 | PROVIDERS: ATTEND Orthopaedic Surgery | DX: Z20.828 Contact with and (suspected) exposure to other viral communicable diseases (principal) ==

== ENCOUNTER → 2020-04-13 | Outpatient (CLI) | payer BC ==
[~2020-04-13] MED LIST changes: +AMIT50TA PO; +HYDR12CA PO; +NORC1TAB7 PO; +OMEP-218 PO; +SYNT100T PO
[2020-04-13 12:56] LABS: BLOOD UREA NITROGEN 15 MG/DL (7-18); CALCIUM LEVEL 9.9 MG/DL (8.5-10.1); CARBON DIOXIDE LEVEL 32 MEQ/L (21-32); CHLORIDE LEVEL 101 MEQ/L (98-107); CREATININE FOR GFR 0.97 MG/DL (0.55-1.30); GLOMERULAR FILTRATION RATE > 60.0 (>51); GLUCOSE, FASTING 89 MG/DL (70-100); POTASSIUM SERUM 4.2 MEQ/L (3.5-5.1); SODIUM LEVEL 140 MEQ/L (136-145)
== END ==
LOC: M LAB 11:53
PROVIDERS: ATTEND Orthopaedic Surgery
DX: M23.222 Derangement of posterior horn of medial meniscus due to old tear or injury, left knee (principal)

== ENCOUNTER → 2020-04-16 | Outpatient (CLI) | payer BC | LOC: M LABSMTC 10:22 | PROVIDERS: ATTEND Orthopaedic Surgery | DX: Z01.812 Encounter for preprocedural laboratory examination (principal); Z20.828 Contact with and (suspected) exposure to other viral communicable diseases ==

== ENCOUNTER → 2020-06-15 | Outpatient (CLI) | payer BC ==
[~2020-06-15] MED LIST changes: +GABA-282 PO; -GABA-843 PO
--- NOTE | 2020-06-18 23:59 | ECGEPIP ---
[facility] Test Date: 2020-06-15 Pat Name: FRANCIA LOREDO Department: Room: - Gender: Female High Risk Ob: branden : 1970 Requested By: Vel Price Order Number: [id number] Reading MD: Drake Barnes Measurements Intervals [place] Rate: 89 P: 44 [place]: 140 QRS: 49 QRSD: 72 T: 40 QT: 366 QTc: 445 Interpretive Statements Poor data quality, interpretation may be adversely affected Normal sinus rhythm Compared to the 3 tracings in the system, ST/T changes now not present Electronically Signed on 06-18-2020 23:59:24 EST by Drake Barnes
== END ==
LOC: M EKG 09:28
PROVIDERS: ATTEND Orthopaedic Surgery
DX: Z01.810 Encounter for preprocedural cardiovascular examination (principal)

== ENCOUNTER → 2020-07-03 | Outpatient (CLI) | payer BC ==
--- NOTE | 2020-07-03 11:01 | REP ---
INDICATION: PAPALARY THYROID CANCER, FOLLOW UP COMPARISON: None. TECHNIQUE: Aguayo scale and color evaluation of the thyroid gland using the linear high frequency transducer. FINDINGS: Patient gives a history of prior thyroidectomy for papillary carcinoma. Ultrasound examination through the thyroid bed demonstrates no residual thyroid tissue, abnormal mass or fluid collection. IMPRESSION: Status post thyroidectomy. No evidence for recurrence, mass, adenopathy, or abnormal fluid collection by ultrasound evaluation. <Electronically signed by Sharan Mcclure > 07/03/20 [id number]
== END ==
LOC: M RAD 10:04
PROVIDERS: ATTEND Internal Medicine
DX: C73 Malignant neoplasm of thyroid gland (principal); Z90.89 Acquired absence of other organs

== ENCOUNTER → 2020-12-17 | Outpatient (CLI) | payer BC ==
[~2020-12-17] MED LIST changes: +OMEP40CA4 PO; -OMEP40CA97 PO
--- NOTE | 2020-12-17 10:04 | REP ---
INDICATION: INTERNAL DERANGEMENT. . COMPARISON: None TECHNIQUE: Sagittal spin-echo proton density, T2 STIR and T2 FLASH. Coronal spin-echo proton density and fat suppressed proton density. Axial fat suppressed proton density. FINDINGS: The anterior and posterior horns of the lateral meniscus are within normal limits. Grade 1 signal change is seen in the posterior horn of the medial meniscus which is subluxed medially. The anterior and posterior cruciate ligaments are intact. The quadriceps and patellar tendons are intact. The medial and lateral collateral ligaments are intact. The medial and lateral patellar retinacula are intact. In the medial femoral condyle there is an 8 mm sized focus of condylar depression in conjunction with subchondral T2 hyper signal. There is advanced cartilaginous thinning involving the medial femoral condyle and proximal medial tibial metaphysis. There is cartilaginous thinning and irregularity involving the lateral compartmental articular cartilages and the cartilaginous surfaces of the patellofemoral joint. There is fissuring involving the patellar articular cartilage. There is slight tricompartmental marginal osteophytosis. There is no clair joint effusion. There is a small amount of fluid seen between the tendons of the medial head of the gastrocnemius muscle and the semimembranosus muscle. IMPRESSION: 1. 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 2. Tricompartmental chondromalacia as described above. 3. Medial meniscal degenerative type signal changes as described above with chronic medial meniscal subluxation. 4. Other findings as described above. <Electronically signed by Kameron Galeano > 12/17/20 [id number]
--- NOTE | 2020-12-17 17:12 | REPVR ---
PROCEDURE INFORMATION: Exam: MR Lumbar Spine Without Contrast Exam date and time: 12/17/2020 8:49 AM Age: 50 years old Clinical indication: Low back pain; Additional info: Oa lt knee/ disc degeneration TECHNIQUE: Imaging protocol: Multiplanar magnetic resonance images of the lumbar spine without intravenous contrast. COMPARISON: CT ABD PELVIS W/O CONTRAST 10/08/2018 2:46 PM FINDINGS: Vertebral body heights are maintained. No abnormal marrow signal. No cord compression. No abnormal cord signal. Conus medullaris terminates at the L1 level. Paravertebral soft tissues are unremarkable. L1-L2: No significant canal or foraminal narrowing. L2-L3: No significant canal or foraminal narrowing. L3-L4: No significant canal or foraminal narrowing. L4-L5: No significant canal or foraminal narrowing. L5-S1: Slight broad-based disc bulge and facet hypertrophy cause mild bilateral foraminal narrowing. No significant canal narrowing. IMPRESSION: No acute findings in the lumbar spine. Electronically signed by: Juan Luis Campuzano On 12/17/2020 17:11:51 PM
== END ==
LOC: M PLAIMG 07:42
PROVIDERS: ATTEND Physician Assistant Surgical
DX: M94.262 Chondromalacia, left knee (principal); M51.36 Other intervertebral disc degeneration, lumbar region; M17.12 Unilateral primary osteoarthritis, left knee

== ENCOUNTER → 2021-01-11 | Outpatient (REF) | payer BC | LOC: M LAB REF 16:14 | PROVIDERS: ATTEND Internal Medicine | DX: M19.90 Unspecified osteoarthritis, unspecified site (principal) ==

== ENCOUNTER → 2021-01-12 | Outpatient (CLI) | payer BC ==
--- NOTE | 2021-01-12 13:06 | REP ---
INDICATION: CERVICALGIA. COMPARISON: None. TECHNIQUE: Seven views FINDINGS: Seven views of the cervical spine show no acute fracture, dislocation or subluxation. The intervertebral disc spaces are symmetric and well maintained. The facet joints are well aligned bilaterally. The intervertebral foramina are patent bilaterally and the neural canal is not encroached upon. There is no destructive osseous lesion. Flexion and extension does not appear to be particularly limited radiographically. The anterior spinal soft tissues appear unremarkable. IMPRESSION: Unremarkable cervical spine series. <Electronically signed by Kameron Galeano > 01/12/21 [id number]
== END ==
LOC: M RAD 12:23
PROVIDERS: ATTEND Internal Medicine
DX: M54.2 Cervicalgia (principal)

== ENCOUNTER → 2021-04-05 | Outpatient (CLI) | payer BC ==
[2021-04-05 12:15] LABS: HEMATOCRIT 39.2 % (36.0-47.0); MEAN CORPUSCULAR HEMOGLOBIN 29.5 pg (27.0-33.0); MEAN CORPUSCULAR HGB CONC 33.2 g/dl (32.0-36.5); MEAN CORPUSCULAR VOLUME 89.1 fl (80.0-96.0); PLATELET COUNT, AUTOMATED 364 10^3/uL (150-450); WHITE BLOOD COUNT 8.7 10^3/uL (4.0-10.0)
[2021-04-05 12:25] LABS: INR 1.01; PROTHROMBIN TIME 13.7 SECONDS (12.7-14.5)
[2021-04-05 12:50] LABS: ALBUMIN 3.9 GM/DL (3.2-5.2); ALT/SGPT 22 U/L (12-78); BILIRUBIN,TOTAL 0.4 MG/DL (0.2-1.0); BLOOD UREA NITROGEN 11 MG/DL (7-18); CALCIUM LEVEL 9.8 MG/DL (8.5-10.1); CARBON DIOXIDE LEVEL 30 MEQ/L (21-32); CHLORIDE LEVEL 105 MEQ/L (98-107); ERYTHROCYTE SEDIMENTATION RATE 28 mm/hr (0-30); GLOMERULAR FILTRATION RATE > 60.0 (>51); GLUCOSE, FASTING 163 MG/DL (70-100); POTASSIUM SERUM 3.8 MEQ/L (3.5-5.1); SODIUM LEVEL 141 MEQ/L (136-145); TOTAL PROTEIN 7.1 GM/DL (6.4-8.2)
--- NOTE | 2021-04-07 23:54 | ECGEPIP ---
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
== END ==
LOC: M LAB 11:03
PROVIDERS: ATTEND Orthopaedic Surgery
DX: Z01.818 Encounter for other preprocedural examination (principal); M17.12 Unilateral primary osteoarthritis, left knee

== ENCOUNTER → 2021-06-07 | Outpatient (REF) | payer BC ==
[~2021-06-07] MED LIST changes: +OMEP-173 PO; -OMEP-218 PO
[2021-06-07 17:59] LABS: C REACTIVE PROTEIN QUANTITATIV 0.49 MG/DL (0.00-0.30); PHOSPHORUS LEVEL 4.5 MG/DL (2.5-4.9)
[2021-06-07 18:13] LABS: TOTAL 25(OH) VITAMIN D 20.2 NG/ML (30.0-100.0)
== END ==
LOC: M SFHCRHEU 14:19
PROVIDERS: ATTEND Internal Medicine
DX: M79.10 Myalgia, unspecified site (principal); M25.40 Effusion, unspecified joint

== ENCOUNTER → 2021-06-29 | Outpatient (REF) | LOC: M PLARAD 10:10 → M PLAIMG 10:10 | PROVIDERS: ATTEND Internal Medicine | DX: Z00.00 Encounter for general adult medical examination without abnormal findings (principal) ==

== ENCOUNTER → 2021-07-05 | Outpatient (CLI) | payer BC | LOC: M SLEEP HO 10:17 | PROVIDERS: ATTEND Internal Medicine | DX: R53.82 Chronic fatigue, unspecified (principal) ==

== ENCOUNTER → 2021-08-18 | Outpatient (CLI) | payer BC | LOC: M PLAIMG 13:25 | PROVIDERS: ATTEND Internal Medicine | DX: M79.89 Other specified soft tissue disorders (principal) ==

== ENCOUNTER → 2021-09-12 | Outpatient (CLI) | payer BC | LOC: M SLEEP 20:00 | PROVIDERS: ATTEND Nurse Practitioner Family | DX: G47.33 Obstructive sleep apnea (adult) (pediatric) (principal) ==

== ENCOUNTER → 2022-01-21 | Outpatient (REF) | payer BC ==
[~2022-01-21] MED LIST changes: -NORG1TAB4 PO; +NORG1TAB40 PO
[2022-01-21 16:51] LABS: BASO # 0.1 10^3/uL (0.0-0.2); BASO % 0.5 % (0.0-1.0); EOS # 0.1 10^3/uL (0.0-0.5); EOS % 1.2 % (0.0-3.0); HEMATOCRIT 41.9 % (36.0-47.0); HEMOGLOBIN 13.5 g/dl (12.0-15.5); LYMPH # 2.6 10^3/uL (1.5-5.0); LYMPH % 27.5 % (24.0-44.0); MEAN CORPUSCULAR HEMOGLOBIN 28.6 pg (27.0-33.0); MEAN CORPUSCULAR HGB CONC 32.2 g/dl (32.0-36.5); MEAN CORPUSCULAR VOLUME 88.8 fl (80.0-96.0); MONO # 0.8 10^3/uL (0.0-0.8); MONO % 8.6 % (2.0-8.0); NEUTROPHILS # 5.8 10^3/uL (1.5-8.5); NEUTROPHILS % 61.9 % (36.0-66.0); PLATELET COUNT, AUTOMATED 361 10^3/uL (150-450); RED BLOOD COUNT 4.72 10^6/uL (4.00-5.40); WHITE BLOOD COUNT 9.3 10^3/uL (4.0-10.0)
[2022-01-21 17:36] LABS: ALBUMIN 4.4 GM/DL (3.2-5.2); ALT/SGPT 34 U/L (12-78); BILIRUBIN,DIRECT 0.1 MG/DL (0.0-0.2); BILIRUBIN,TOTAL 0.4 MG/DL (0.2-1.0); BLOOD UREA NITROGEN 18 MG/DL (7-18); CARBON DIOXIDE LEVEL 28 MEQ/L (21-32); CHLORIDE LEVEL 103 MEQ/L (98-107); CREATININE FOR GFR 0.98 MG/DL (0.55-1.30); GLOMERULAR FILTRATION RATE > 60.0 (>51); GLUCOSE, FASTING 95 MG/DL (70-100); POTASSIUM SERUM 4.2 MEQ/L (3.5-5.1); SODIUM LEVEL 136 MEQ/L (136-145); TOTAL PROTEIN 7.6 GM/DL (6.4-8.2)
[2022-01-21 18:02] LABS: TOTAL 25(OH) VITAMIN D 39.7 NG/ML (30.0-100.0)
== END ==
LOC: M SFHCRHEU 12:19
PROVIDERS: ATTEND Internal Medicine
DX: M06.4 Inflammatory polyarthropathy (principal); R74.8 Abnormal levels of other serum enzymes

== ENCOUNTER → 2022-04-21 | Outpatient (CLI) | payer BC | LOC: M RAD 11:42 | PROVIDERS: ATTEND Nurse Practitioner Family | DX: M46.1 Sacroiliitis, not elsewhere classified (principal) ==

== ENCOUNTER → 2022-04-21 | Outpatient (CLI) | payer BC | LOC: M PAIN 10:00 | PROVIDERS: ATTEND Nurse Practitioner Family | DX: M46.1 Sacroiliitis, not elsewhere classified (principal); G89.29 Other chronic pain; K21.9 Gastro-esophageal reflux disease without esophagitis; G43.909 Migraine, unspecified, not intractable, without status migrainosus; G25.81 Restless legs syndrome; G47.30 Sleep apnea, unspecified; Z86.59 Personal history of other mental and behavioral disorders; Z96.653 Presence of artificial knee joint, bilateral; E66.01 Morbid (severe) obesity due to excess calories; Z68.41 Body mass index [BMI] 40.0-44.9, adult; Z79.899 Other long term (current) drug therapy ==

== ENCOUNTER → 2022-06-02 | Outpatient (CLI) | payer BC | LOC: M PLARAD 09:59 | PROVIDERS: ATTEND Nurse Practitioner Family | DX: M46.1 Sacroiliitis, not elsewhere classified (principal) ==

== ENCOUNTER → 2022-06-09 | Outpatient (CLI) | payer BC | LOC: M PAIN 13:45 | PROVIDERS: ATTEND Nurse Practitioner Family | DX: M46.1 Sacroiliitis, not elsewhere classified (principal); G89.29 Other chronic pain; K21.9 Gastro-esophageal reflux disease without esophagitis; G43.909 Migraine, unspecified, not intractable, without status migrainosus; G25.81 Restless legs syndrome; G47.30 Sleep apnea, unspecified; Z86.59 Personal history of other mental and behavioral disorders; E66.01 Morbid (severe) obesity due to excess calories; Z68.41 Body mass index [BMI] 40.0-44.9, adult; Z79.899 Other long term (current) drug therapy ==

== ENCOUNTER → 2022-08-15 | Outpatient (REF) | payer BC | LOC: M LAB REF 09:39 | PROVIDERS: ATTEND Physician Assistant Medical | DX: R19.7 Diarrhea, unspecified (principal) ==

== ENCOUNTER → 2022-08-19 | Outpatient (REF) | payer BC ==
[2022-08-19 17:12] LABS: BASO # 0.1 10^3/uL (0.0-0.2); BASO % 0.8 % (0.0-1.0); EOS # 0.1 10^3/uL (0.0-0.5); EOS % 1.2 % (0.0-3.0); HEMATOCRIT 44.6 % (36.0-47.0); HEMOGLOBIN 14.4 g/dl (12.0-15.5); LYMPH # 2.1 10^3/uL (1.5-5.0); LYMPH % 26.7 % (24.0-44.0); MEAN CORPUSCULAR HEMOGLOBIN 29.3 pg (27.0-33.0); MEAN CORPUSCULAR HGB CONC 32.3 g/dl (32.0-36.5); MEAN CORPUSCULAR VOLUME 90.7 fl (80.0-96.0); MONO # 0.6 10^3/uL (0.0-0.8); MONO % 7.6 % (2.0-8.0); NEUTROPHILS # 4.9 10^3/uL (1.5-8.5); NEUTROPHILS % 63.3 % (36.0-66.0); PLATELET COUNT, AUTOMATED 344 10^3/uL (150-450); RED BLOOD COUNT 4.92 10^6/uL (4.00-5.40); WHITE BLOOD COUNT 7.8 10^3/uL (4.0-10.0)
[2022-08-19 17:30] LABS: TOTAL 25(OH) VITAMIN D 36.4 NG/ML (20.0-100.0)
[2022-08-19 17:31] LABS: RHEUMATOID FACTOR QUANT < 3.5 IU/ML (<14)
[2022-08-19 17:32] LABS: ALBUMIN 4.4 G/DL (3.2-5.2); ALKALINE PHOSPHATASE 114 U/L (46-116); ALT/SGPT 27 U/L (7.0-40); AST/SGOT 17 U/L (<34); BILIRUBIN,DIRECT 0.2 MG/DL (<0.4); BILIRUBIN,TOTAL 0.5 MG/DL (0.3-1.2); BLOOD UREA NITROGEN 14 MG/DL (9-23); CALCIUM LEVEL 9.4 MG/DL (8.5-10.1); CARBON DIOXIDE LEVEL 31 MMOL/L (20-31); CHLORIDE LEVEL 99 MMOL/L (98-107); CREATININE FOR GFR 1.15 MG/DL (0.55-1.30); GLOMERULAR FILTRATION RATE 52.8 (>51); GLUCOSE, FASTING 68 MG/DL (60-100); SODIUM LEVEL 140 MMOL/L (136-145); TOTAL PROTEIN 7.3 G/DL (5.7-8.2)
[2022-08-19 17:42] LABS: ERYTHROCYTE SEDIMENTATION RATE 34 mm/hr (0-30)
== END ==
LOC: M SFHCRHEU 11:46
PROVIDERS: ATTEND Internal Medicine
DX: M06.4 Inflammatory polyarthropathy (principal); M35.9 Systemic involvement of connective tissue, unspecified; R74.8 Abnormal levels of other serum enzymes; E55.9 Vitamin D deficiency, unspecified

== ENCOUNTER → 2022-09-09 | Outpatient (CLI) | payer BC ==
[~2022-09-09] MED LIST changes: +E-Z-GAS II EFFERVESCENT PACKET (SODIUM BICARB./CITRIC ACID/SIMETHICONE) As Ordered ONE; +E-Z-HD 98% w/w 340GM SUSP BTL As Ordered ONE; +E-Z-PAQUE 96% w/w SUSP 176GM BTL As Ordered ONE
== END ==
LOC: M RAD 08:22
PROVIDERS: ATTEND Physician Assistant Medical
DX: R13.10 Dysphagia, unspecified (principal); R12 Heartburn

== ENCOUNTER 2022-09-20 09:12 | Day surgery (SDC) | payer BC ==
[~2022-09-20] VITALS: Ht 157.5 cm; Wt 98.9 kg
[~2022-09-20 09:12] MED LIST changes: +BUPR300T92 PO; -E-Z-GAS II EFFERVESCENT PACKET (SODIUM BICARB./CITRIC ACID/SIMETHICONE) As Ordered ONE; -E-Z-HD 98% w/w 340GM SUSP BTL As Ordered ONE; -E-Z-PAQUE 96% w/w SUSP 176GM BTL As Ordered ONE; +HYDR200T3 PO; +MYRB50TA PO; +NS 1,000 ML IV ONE; +SYNT125T PO; +TRAZ1TAB14 PO
[2022-09-20] MEDS ORDERED: LIDOCAINE 2% 100MG/5ML SDV (FOR ANES.) As Ordered ONE (09:56)
[2022-09-20] MEDS ORDERED: fentaNYL 100 MCG/2 ML INJECTION As Ordered ONE (09:57)
[2022-09-20] MEDS ORDERED: propofoL 500 MG/50 ML VIAL As Ordered ONE (09:57)
[2022-09-20] MEDS ORDERED: propofoL 200 MG/20 ML VIAL As Ordered ONE (11:53)
[2022-09-20 12:30] VITALS: BP 129/75
== END 2022-09-20 12:39 | disposition home or self-care (01) ==
LOC: M OPP 09:12
PROVIDERS: ATTEND Internal Medicine Gastroenterology
DX: K57.10 Diverticulosis of small intestine without perforation or abscess without bleeding (principal); K31.7 Polyp of stomach and duodenum; K44.9 Diaphragmatic hernia without obstruction or gangrene; R19.7 Diarrhea, unspecified; R12 Heartburn; R13.10 Dysphagia, unspecified; G47.33 Obstructive sleep apnea (adult) (pediatric); Z79.891 Long term (current) use of opiate analgesic; Z79.899 Other long term (current) drug therapy
CPT/HCPCS: 43251; 45380; 88305; 91035; J3010

== ENCOUNTER → 2022-10-07 | Outpatient (CLI) | payer BC ==
[~2022-10-07] MED LIST changes: -HYDR200T3 PO; +HYDR200T46 PO; -NS 1,000 ML IV ONE
[2022-10-07 12:32] LABS: BASO # 0.1 10^3/uL (0.0-0.2); BASO % 0.7 % (0.0-1.0); EOS # 0.1 10^3/uL (0.0-0.5); EOS % 0.7 % (0.0-3.0); HEMATOCRIT 41.9 % (36.0-47.0); HEMOGLOBIN 13.6 g/dl (12.0-15.5); LYMPH # 2.6 10^3/uL (1.5-5.0); LYMPH % 34.6 % (24.0-44.0); MEAN CORPUSCULAR HEMOGLOBIN 29.2 pg (27.0-33.0); MEAN CORPUSCULAR HGB CONC 32.5 g/dl (32.0-36.5); MEAN CORPUSCULAR VOLUME 89.9 fl (80.0-96.0); MONO # 0.6 10^3/uL (0.0-0.8); MONO % 8.1 % (2.0-8.0); NEUTROPHILS # 4.3 10^3/uL (1.5-8.5); NEUTROPHILS % 55.8 % (36.0-66.0); PLATELET COUNT, AUTOMATED 310 10^3/uL (150-450); RED BLOOD COUNT 4.66 10^6/uL (4.00-5.40); WHITE BLOOD COUNT 7.6 10^3/uL (4.0-10.0)
[2022-10-07 12:40] LABS: ERYTHROCYTE SEDIMENTATION RATE 20 mm/hr (0-30)
== END ==
LOC: M RAD 11:16
PROVIDERS: ATTEND Orthopaedic Surgery
DX: M25.562 Pain in left knee (principal); M79.605 Pain in left leg

== ENCOUNTER → 2022-10-31 | Outpatient (CLI) | payer BC ==
[~2022-10-31] MED LIST changes: -ROPI1TAB3 PO; +ROPI1TAB73 PO; -ROPI2TAB3 PO; +ROPI2TAB46 PO
== END ==
LOC: M WHC 08:12
PROVIDERS: ATTEND Internal Medicine
DX: Z13.820 Encounter for screening for osteoporosis (principal)

== ENCOUNTER 2022-11-22 07:19 | Day surgery (SDC) | payer BC ==
[~2022-11-22] VITALS: Ht 157.5 cm; Wt 97.5 kg
[~2022-11-22 07:19] MED LIST changes: +NS 1,000 ML IV ONE; +propofoL 200 MG/20 ML VIAL As Ordered ONE
[2022-11-22] MEDS ORDERED: propofoL 200 MG/20 ML VIAL As Ordered ONE ×2 (09:27→09:28)
[2022-11-22 09:40] VITALS: TEMP 98
[2022-11-22 09:58] VITALS: BP 116/85; O2SAT 98
== END 2022-11-22 10:00 | disposition home or self-care (01) ==
LOC: M OPP 07:19
PROVIDERS: ATTEND Internal Medicine Gastroenterology
DX: R19.7 Diarrhea, unspecified (principal); R19.4 Change in bowel habit; R10.84 Generalized abdominal pain; Z79.890 Hormone replacement therapy; Z79.891 Long term (current) use of opiate analgesic; Z79.899 Other long term (current) drug therapy

== ENCOUNTER → 2022-11-28 | Outpatient (CLI) | payer BC ==
[~2022-11-28] MED LIST changes: -NS 1,000 ML IV ONE; -propofoL 200 MG/20 ML VIAL As Ordered ONE
== END ==
LOC: M RAD 07:17
PROVIDERS: ATTEND Orthopaedic Surgery
DX: M79.605 Pain in left leg (principal)
CPT/HCPCS: 78315; A9503

== ENCOUNTER → 2022-12-27 | Outpatient (CLI) | payer BC ==
[~2022-12-27] MED LIST changes: +GASTROGRAFIN SOLUTION 30ML As Ordered ONE; +ISOVUE-370 76% 100ML VIAL As Ordered ONE
== END ==
LOC: M RAD 07:56
PROVIDERS: ATTEND Physician Assistant Medical
DX: K86.81 Exocrine pancreatic insufficiency (principal); Z90.49 Acquired absence of other specified parts of digestive tract
CPT/HCPCS: 74178; Q9963; Q9967

== ENCOUNTER → 2022-12-29 | Outpatient (REF) | payer BC ==
[~2022-12-29] MED LIST changes: -GASTROGRAFIN SOLUTION 30ML As Ordered ONE; -ISOVUE-370 76% 100ML VIAL As Ordered ONE
[2022-12-29 17:28] LABS: CALCIUM LEVEL 9.9 MG/DL (8.5-10.1); CREATININE FOR GFR 1.17 MG/DL (0.55-1.30); GLOMERULAR FILTRATION RATE 51.7 (>51)
== END ==
LOC: M SFHCRHEU 12:01
PROVIDERS: ATTEND Internal Medicine
DX: R94.4 Abnormal results of kidney function studies (principal)

== ENCOUNTER → 2023-02-14 | Outpatient (CLI) | payer BC | LOC: M PLAIMG 09:42 | PROVIDERS: ATTEND Internal Medicine | DX: R51.9 Headache, unspecified (principal) ==

== ENCOUNTER → 2023-03-30 | Outpatient (CLI) | payer BC | LOC: M RAD 08:24 | PROVIDERS: ATTEND Internal Medicine Nephrology | DX: I70.1 Atherosclerosis of renal artery (principal) ==

== ENCOUNTER → 2023-05-23 | Outpatient (REF) | payer MEDICARE, OTHER ==
[2023-05-25 09:10] LABS: LDL DIRECT 80 mg/dL (0-99)
== END ==
LOC: M LAB REF 16:41
PROVIDERS: ATTEND Internal Medicine
DX: E78.5 Hyperlipidemia, unspecified (principal)

== ENCOUNTER → 2023-09-22 | Outpatient (REF) | payer MEDICARE, OTHER ==
[~2023-09-22] MED LIST changes: +BUPR-597 PO; -BUPR300T92 PO
== END ==
LOC: M SFHCRHEU 12:08
PROVIDERS: ATTEND Internal Medicine
DX: Z79.899 Other long term (current) drug therapy (principal)

== ENCOUNTER → 2023-10-03 | Outpatient (REF) | payer MEDICARE, OTHER | LOC: M LAB REF 17:39 | PROVIDERS: ATTEND Surgery | DX: D17.1 Benign lipomatous neoplasm of skin and subcutaneous tissue of trunk (principal) ==

== ENCOUNTER → 2024-03-20 | Outpatient (CLI) | payer MEDICARE, OTHER ==
[~2024-03-20] MED LIST changes: +GABA-1172 PO; -GABA-282 PO
== END ==
LOC: M RAD 11:48
PROVIDERS: ATTEND Internal Medicine
DX: M25.511 Pain in right shoulder (principal); M25.512 Pain in left shoulder

== ENCOUNTER → 2024-11-05 | Outpatient (CLI) | payer MEDICARE, OTHER ==
[~2024-11-05] MED LIST changes: -BUPR-597 PO; +BUPR-766 PO
== END ==
LOC: M PLAIMG 15:26
PROVIDERS: ATTEND Internal Medicine
DX: M54.50 Low back pain, unspecified (principal)

== ENCOUNTER → 2024-11-05 | Outpatient (CLI) | payer MEDICARE, OTHER | LOC: M WUC 14:47 | PROVIDERS: ATTEND Internal Medicine | DX: Z53.9 Procedure and treatment not carried out, unspecified reason (principal) ==

== ENCOUNTER → 2025-01-21 | Outpatient (CLI) | payer MEDICARE, OTHER ==
[~2025-01-21] MED LIST changes: +HYDR12.510 PO; -HYDR12CA PO; +ZOLP10TA11 PO; -ZOLP10TA2 PO
== END ==
LOC: M WHC 07:44
PROVIDERS: ATTEND Internal Medicine
DX: Z13.820 Encounter for screening for osteoporosis (principal); M85.851 Other specified disorders of bone density and structure, right thigh; M85.852 Other specified disorders of bone density and structure, left thigh

== ENCOUNTER → 2025-02-25 | Outpatient (CLI) | payer MEDICARE, OTHER ==
[2025-02-25 15:51] LABS: BASO # 0.0 10^3/uL (0.0-0.2); BASO % 0.5 % (0.0-1.0); EOS # 0.0 10^3/uL (0.0-0.5); EOS % 0.6 % (0.0-3.0); LYMPH # 3.3 10^3/uL (1.5-5.0); LYMPH % 51.5 % (24.0-44.0); MONO # 0.4 10^3/uL (0.0-0.8); MONO % 5.4 % (2.0-8.0); NEUTROPHILS # 2.7 10^3/uL (1.5-8.5); NEUTROPHILS % 41.8 % (36.0-66.0); PLATELET COUNT, AUTOMATED 343 10^3/uL (150-450)
[2025-02-25 16:09] LABS: COMPLEMENT C4 34.8 MG/DL (12-36)
[2025-02-25 16:10] LABS: ALT/SGPT 53 U/L (7.0-40); AST/SGOT 38 U/L (<34); C REACTIVE PROTEIN QUANTITATIV < 0.50 MG/DL (<1.0); CALCIUM LEVEL 9.3 MG/DL (8.5-10.1); CARBON DIOXIDE LEVEL 31 MMOL/L (20-31); CHLORIDE LEVEL 100 MMOL/L (98-107); CREATININE FOR GFR 1.15 MG/DL (0.55-1.30); GLOMERULAR FILTRATION RATE 56.3 (>51); POTASSIUM SERUM 4.0 MMOL/L (3.5-5.1); SODIUM LEVEL 140 MMOL/L (136-145)
[2025-02-25 16:17] LABS: HEPATITIS B SURFACE ANTIBODY NEGATIVE (POSITIVE)
[2025-02-25 17:04] LABS: HEPATITIS C VIRUS ABY INDEX 1.57 INDEX (<0.8)
[2025-02-25 18:31] LABS: TOTAL PROTEIN,RANDOM URINE 12.5 MG/DL (0.0-14.0)
[2025-02-25 19:32] LABS: APPEARANCE, URINE CLEAR (CLEAR); BACTERIA, URINE AUTO NEGATIVE (NEGATIVE); BILIRUBIN, URINE AUTO NEGATIVE (NEGATIVE); BLOOD, URINE BLOOD NEGATIVE (NEGATIVE); GLUCOSE, URINE (UA) AUTO NEGATIVE (NEGATIVE); KETONE, URINE AUTO NEGATIVE (NEGATIVE); LEUKOCYTE ESTERASE, URINE AUTO NEGATIVE (NEGATIVE); MUCUS, URINE SMALL (NEGATIVE); NITRITE, URINE AUTO NEGATIVE (NEGATIVE); PROTEIN, URINE AUTO NEGATIVE (NEGATIVE); RBC, URINE AUTO 0 /HPF (0-3); SPECIFIC GRAVITY URINE AUTO 1.024 (1.002-1.035); SQUAMOUS EPITHELIAL CELL UR AU 2 /HPF (0-6); UROBILINOGEN, URINE AUTO 2.0 mg/dL (0.0-2.0); WBC, URINE AUTO 2 /HPF (0-3)
== END ==
LOC: M RAD 14:52
PROVIDERS: ATTEND Internal Medicine
DX: R76.0 Raised antibody titer (principal); M06.4 Inflammatory polyarthropathy; Z11.59 Encounter for screening for other viral diseases

== ENCOUNTER → 2025-02-25 | Outpatient (REF) | payer MEDICARE, OTHER | LOC: M SFHCRHEU 13:54 | PROVIDERS: ATTEND Internal Medicine | DX: R76.0 Raised antibody titer (principal); M06.4 Inflammatory polyarthropathy; Z11.59 Encounter for screening for other viral diseases ==

== ENCOUNTER → 2025-03-05 | Outpatient (CLI) | payer MEDICARE, OTHER ==
[2025-03-06 13:22] LABS: HEPATITIS B CORE ANTIBODY IGG NON-REACTIVE (NON-REACTIVE)
[2025-03-06 21:32] LABS: HCV RNA QUANTITATION <15 NOT DETECTED IU/mL (NOT DETECTED); HCV RNA log10 <1.18 NOT DETECTED Log IU/mL (NOT DETECTED)
[2025-03-09 20:23] LABS: COMPLEMENT TOTAL (CH50) 53 U/mL (31-60)
[2025-03-09 23:43] LABS: G6PD ADULT 15.8 U/g Hgb (7.0-20.5)
[2025-03-11 07:08] LABS: PTT-LA 38 sec (<=40)
== END ==
LOC: M LAB 11:46
PROVIDERS: ATTEND Internal Medicine
DX: R76.89 Other specified abnormal immunological findings in serum (principal); R76.0 Raised antibody titer; Z11.59 Encounter for screening for other viral diseases; M06.4 Inflammatory polyarthropathy

== ENCOUNTER → 2025-04-03 | Outpatient (CLI) | payer MEDICARE, OTHER ==
[2025-04-03 14:51] LABS: ALT/SGPT 29.0 U/L (7.0-40); AST/SGOT 26.0 U/L (<34)
== END ==
LOC: M LAB 13:45
PROVIDERS: ATTEND Internal Medicine
DX: R74.8 Abnormal levels of other serum enzymes (principal)

== ENCOUNTER → 2025-04-04 | Outpatient (CLI) | payer MEDICARE, OTHER ==
[~2025-04-04] MED LIST changes: +PROHANCE 279.3MG/ML 5ML VIAL As Ordered ONE
== END ==
LOC: M RAD 16:02
PROVIDERS: ATTEND Internal Medicine
DX: R93.6 Abnormal findings on diagnostic imaging of limbs (principal)
CPT/HCPCS: 73220; A9579